=== PATIENT | female | born 1955 | race Caucasian/White ===

== ENCOUNTER 2019-01-29 22:38 | Emergency (ER) | payer MEDICAID ==
[~2019-01-29] VITALS: Ht 152.4 cm; Wt 156.0 kg
--- NOTE | 2019-01-29 22:51 | NUR ---
HELPED ESCORT PT OUT OF PATROL CAR, PT ABLE TO STAND UP UNDER HER OWN POWER, RESP EVEN, UNLABORED, PT REFUSING TO ANSWER QUESTIONS. PER [employer] OFFICER PATIENT INVOLVED IN NO ACCIDENTS. PT CONTINUES TO YELL I HAVE C-DIFF, YOU ALL ARE GOING TO GET IT NOW, PT STATES SHE IS BEING SEEN BY A SPECIALIST AND IS BEING TREATED FOR IT. PT REFUSING TO ANSWER ANY OTHER QUESTIONS, DOESN'T EXPRESS ANY EMERGENCY CONDITION AND WAS NOT SEEKING HOSPITAL CARE BEFORE DUI STOP.
== END 2019-01-29 23:14 | disposition home or self-care (01) ==
LOC: ER 22:39
DX: L03.115 Cellulitis of right lower limb (principal); Z89.412 Acquired absence of left great toe
CPT/HCPCS: 99283

== ENCOUNTER 2019-05-20 20:26 | Emergency (ER) | payer MEDICAID ==
[~2019-05-20] VITALS: Ht 170.2 cm; Wt 113.6 kg
[2019-05-20 20:27] VITALS: BP 149/99
--- NOTE | 2019-05-20 22:15 | NUR ---
PHLEB MAYKEL TOLD TRAM RAYO THAT PT WAS REFUSING ALL LABS
--- NOTE | 2019-05-20 22:19 | NUR ---
TALKED WITH PT ABOUT REFUSING LAB DRAW. PT STILL REFUSING AFTER KNOWING RISKS AND BENEFITS.
--- NOTE | 2019-05-20 23:59 | NUR ---
PT PROVIDED WITH SANDWICH AND APPLE JUICE.
--- NOTE | 2019-05-21 00:30 | NUR ---
RECEIVED UPDATE REPORT FROM CYNTHIA RN, VALERIE RN. PT REPORTED HAVING BOWEL MOVEMENT IN BED AND WANTED TO BE CLEANED UP "BUT ONLY WHEN SHE MOVES TO HER OTHER ROOM." PT REFUSED TO BE CLEANED IMMEDIATELY DESPITE BEING TOLD ABOUT RISKS.
--- NOTE | 2019-05-21 02:45 | NUR ---
PT STATING "YOU LEFT ME SITTING IN SHIT ALL NIGHT". PT REORIENTED TO HER REFUSAL TO BE CLEANED. PT REQUESTED WALKER TO TRANSFER TO [employer] IN ROOM. PT TOLD NOT TO MOVE UNTIL I WAS BACK WITH WALKER. WHEN I CAME BACK WITH THE WALKER PT WAS FOUND ON [employer] IN ROOM. PT CLEANED, BED LINENS CHANGED, AND PT BACK IN BED. [employer]MODE AND WALKER AT BEDSIDE AND PT OREINTED TO THEM AND CALL LIGHT.
--- NOTE | 2019-05-21 07:08 | NUR ---
TRANSFERRED PT. TO BED 15. PT. REFUSING TO GIVE BLOOD, STATING "I WANT TO GO UPSTAIRS TO A BED WITH A TV" AND THEN I'LL GIVE BLOOD.
[2019-05-21 07:12] LABS: CLARITY,URINE CLOUDY (Clear); COLOR,URINE YELLOW (Yellow); GLUCOSE, URINE NEGATIVE (Neg); KETONES,URINE NEGATIVE (Neg); LEUKOCYTE ESTERASE ,URINE MODERATE (Neg); NITRITES, URINE POSITIVE (Neg); OCCULT BLOOD,URINE TRACE-INTACT (Neg); PROTEIN,URINE NEGATIVE (Neg)
[2019-05-21 07:13] LABS: UA COLLECTION TYPE CLN CATCH MIDSTREAM
[2019-05-21 07:18] LABS: BACTERIA,URINE 4+ /HPF (Neg); MUCUS STRANDS NONE SEEN /LPF (Neg); RBC,URINE 0-2 /HPF (0-2); SQUAMOUS EPITHELIAL CELL,UR MODERATE /LPF (FEW); WBC,URINE 20-30 /HPF (0-4)
[2019-05-21 07:25] LABS: URINE AMPHETAMINE SCREEN NEGATIVE (Neg); URINE BARBITUATE SCREEN NEGATIVE (Neg); URINE BENZODIAZEPINES SCREEN NEGATIVE (Neg); URINE CANNABINOID SCREEN POSITIVE (Neg); URINE COCAINE SCREEN NEGATIVE (Neg); URINE METHADONE SCREEN NEGATIVE (Neg); URINE OPIATE SCREEN NEGATIVE (Neg); URINE PHENCYCLIDINE SCREEN NEGATIVE (Neg)
--- NOTE | 2019-05-21 07:56 | NUR ---
PT. SLEEPING AND APPEARS IN NO DISTRESS.
[2019-05-21] MEDS ORDERED: LEVO25TA7 PO (10:39)
[2019-05-21] MEDS ORDERED: LEVO200T8 PO (10:39)
[2019-05-21] MEDS ORDERED: SIMV20TA5 PO (10:39)
[2019-05-21] MEDS ORDERED: METF-950 PO (10:39)
[2019-05-21] MEDS ORDERED: GABA800T11 PO (10:39)
[2019-05-21] MEDS ORDERED: LISI10TA4 PO (10:40)
--- NOTE | 2019-05-21 10:51 | NUR ---
Bilateral foot dressings Received pt from [facility] ER. Pt has bilateral foot dressings. Pt states it is painful to walk and that she gets dressing changes everyother day. Pt states she is due to a dressing change tomorrow; that they were just changed yesterday.
[2019-05-21 12:00] LABS: BASOPHILS % (AUTO) 0.8 % (0-1); EOSINOPHILS # (AUTO) 0.1 X10'3 (0-0.9); EOSINOPHILS % (AUTO) 3.1 % (0-6); HEMATOCRIT 32.3 % (35.0-45.0); HEMOGLOBIN 10.8 g/dl (12.0-16.0); LYMPHOCYTES # (AUTO) 0.9 X10'3 (1.1-4.8); LYMPHOCYTES % (AUTO) 26.8 % (21-51); MEAN CORPUSCULAR HEMOGLOBIN 30.6 PG (27.0-31.0); MEAN CORPUSCULAR HGB CONC 33.4 g/dL (33.0-36.5); MEAN CORPUSCULAR VOLUME 91.6 FL (78-98); MEAN PLATELET VOLUME 7.3 FL (7.4-10.4); MONOCYTES # (AUTO) 0.6 X10'3 (0-0.9); MONOCYTES % (AUTO) 17.6 % (2-12); NEUTROPHILS # (AUTO) 1.8 X10'3 (1.8-7.7); NEUTROPHILS % (AUTO) 51.7 % (42-75); PLATELET COUNT 205 X10'3 (140-440); RED BLOOD COUNT 3.53 X10'6 (4.20-5.60); RED CELL DISTRIBUTION WIDTH 16.2 % (11.5-14.5); WHITE BLOOD COUNT 3.5 X10'3 (4.5-11.0)
[2019-05-21 12:13] LABS: ALANINE AMINOTRANSFERASE 17 U/L (12-78); ALBUMIN 2.3 G/DL (3.4-5.0); ALBUMIN/GLOBULIN RATIO 0.6 (1.1-1.5); ALKALINE PHOSPHATASE 102 IU/L (46-116); ANION GAP 10 (8-16); ASPARTATE AMINO TRANSFERASE 12 U/L (10-37); BILIRUBIN,TOTAL 0.8 MG/DL (0.1-1.0); BLOOD UREA NITROGEN 8 MG/DL (7-18); BUN/CREATININE RATIO 13.8 (6.6-38.0); CALCIUM 7.9 MG/DL (8.5-10.1); CHLORIDE 104 MMOL/L (99-107); CREATININE 0.58 MG/DL (0.40-0.90); GLUCOSE 228 MG/DL (70-104); POTASSIUM 3.3 MMOL/L (3.5-5.1); SODIUM 140 MMOL/L (135-145); TOTAL CARBON DIOXIDE 25.9 MMOL/L (24-32); TOTAL PROTEIN 6.4 G/DL (6.4-8.2); eGFR > 90 ML/MIN
--- NOTE | 2019-05-21 12:32 | NUR ---
pt. packet faxed to [facility]
[2019-05-21] MEDS ORDERED: metFORMIN 500mg tablet PO SCH (13:00)
--- NOTE | 2019-05-21 13:03 | NUR ---
Stool sample obtained, Dr. Casas consulted and no order to send to run test for c-diff. Pt stated she had loose BM yesterday and now today. Pt agreed to lab draw and is more cooperative. Pt denies S.I. at this time.
--- NOTE | 2019-05-21 15:02 | NUR ---
Pt met with [facility] casting and pasting supervisor who determined that she did not meet [id number] criteria. Pt is preparing for discharge home to . Pt denies S.I./H.I.
[2019-05-21] MEDS ORDERED: gabapentin 400mg capsule PO SCH (16:00)
[2019-05-22] MEDS ORDERED: levoTHYROXINE 25mcg tablet PO SCH (07:00)
[2019-05-22] MEDS ORDERED: levoTHYROXINE 100mcg tablet PO SCH (07:00)
[2019-05-22] MEDS ORDERED: lisinopril 10 MG tablet PO SCH (08:00)
[2019-05-22] MEDS ORDERED: atorvastatin 10mg tablet PO SCH (08:00)
== END 2019-05-21 15:25 | disposition home or self-care (01) ==
LOC: ER 20:26
DX: F22 Delusional disorders (principal); R19.7 Diarrhea, unspecified; I10 Essential (primary) hypertension; E11.9 Type 2 diabetes mellitus without complications; Z98.890 Other specified postprocedural states; Z87.891 Personal history of nicotine dependence; Z88.0 Allergy status to penicillin; Z88.6 Allergy status to analgesic agent; Z79.899 Other long term (current) drug therapy
CPT/HCPCS: 36415; 80053; 80305; 81001; 82948; 84443; 85025; 99285

== ENCOUNTER 2019-10-08 16:24 | Emergency (ER) | payer MEDICAID ==
[~2019-10-08] VITALS: Ht 170.2 cm; Wt 111.0 kg
[~2019-10-08 16:24] MED LIST: GABA800T11 PO; LEVO200T8 PO; LEVO25TA7 PO; LISI10TA4 PO; METF-950 PO; SIMV-42 PO
[2019-10-08] MEDS ORDERED: insulin regular, human 10 units/0.1 ml syringe SQ ONE (16:35)
[2019-10-08 17:05] VITALS: BP 129/75
== END 2019-10-08 17:07 ==
LOC: ER 16:25
DX: E11.9 Type 2 diabetes mellitus without complications (principal); Z00.00 Encounter for general adult medical examination without abnormal findings; I10 Essential (primary) hypertension; Z88.0 Allergy status to penicillin; Z88.6 Allergy status to analgesic agent; Z79.899 Other long term (current) drug therapy; Z98.890 Other specified postprocedural states
CPT/HCPCS: 82948; 96372; 99283; J1815

== ENCOUNTER 2019-11-03 12:56 | Emergency (ER) | payer MEDICAID ==
[~2019-11-03] VITALS: Ht 170.2 cm; Wt 118.2 kg
== END 2019-11-03 13:40 ==
LOC: ER 12:57
DX: E11.621 Type 2 diabetes mellitus with foot ulcer (principal); L97.429 Non-pressure chronic ulcer of left heel and midfoot with unspecified severity; M79.671 Pain in right foot; I10 Essential (primary) hypertension; Z98.890 Other specified postprocedural states; Z88.0 Allergy status to penicillin; Z88.6 Allergy status to analgesic agent; Z79.84 Long term (current) use of oral hypoglycemic drugs; Z79.899 Other long term (current) drug therapy
CPT/HCPCS: 82948; 99284